=== PATIENT | male | born 1960 | race Caucasian/White ===

== ENCOUNTER 2017-04-22 01:15 | Emergency (ER) | payer OTHER ==
[~2017-04-22] VITALS: Ht 188 cm; Wt 109.1 kg
[2017-04-22] MEDS ORDERED: DEXTROSE 50% 50 ML SYRINGE IV STA (01:24)
[2017-04-22] MEDS ORDERED: BUPR (01:40)
[2017-04-22] MEDS ORDERED: LEXA1TAB2 PO (01:40)
[2017-04-22] MEDS ORDERED: ASPI1TAB15 PO (01:40)
[2017-04-22] MEDS ORDERED: LISI10TA4 PO (01:40)
[2017-04-22] MEDS ORDERED: INSUHUMDS SC (01:40)
[2017-04-22] MEDS ORDERED: SIMV20TA2 PO (01:40)
[2017-04-22] MEDS ORDERED: INSULANT SC (01:40)
[2017-04-22] MEDS ORDERED: VITA100067 PO (01:40)
[2017-04-22] MEDS ORDERED: WELL200T PO (01:40)
[2017-04-22 02:25] VITALS: BP 159/75
== END 2017-04-22 02:27 | disposition home or self-care (01) ==
LOC: M ED 01:15
DX: E11.649 Type 2 diabetes mellitus with hypoglycemia without coma (principal)